=== PATIENT | male | born 1955 | race Hispanic/Latino ===

== ENCOUNTER 2021-04-26 15:40 | Emergency (ER) | payer BC ==
[~2021-04-26] VITALS: Ht 185.4 cm; Wt 95.3 kg
[~2021-04-26 15:40] MED LIST: ALLO300T2 PO; MOME13HF2 IH; NAPR-1141 PO; PHEN-776 PO; TAMS0.4C32 PO; TRAM50TA4 PO
[2021-04-26 17:22] LABS: APPEARANCE,URINE Clear (CLEAR); BILIRUBIN,URINE Negative (NEGATIVE); COLOR,URINE Yellow (YELLOW); GLUCOSE, URINE (UA) Negative (NEGATIVE); KETONES,URINE Negative (NEGATIVE); LEUKOCYTE ESTERASE ,URINE Negative (NEGATIVE); NITRATE,URINE Negative (NEGATIVE); OCCULT BLOOD,URINE Negative (NEGATIVE); PROTEIN,URINE Negative (NEGATIVE)
[2021-04-26] MEDS ORDERED: KETOROLAC 30MG VIAL (30MG/ML) ONE (17:28)
[2021-04-26] MEDS ORDERED: HYDROCODONE/ACETAMINOPHEN 5/325 MG TAB ONE (17:28)
[2021-04-26] MEDS ORDERED: KETOROLAC 30MG VIAL (30MG/ML) IM SCH (17:30)
[2021-04-26] MEDS ORDERED: HYDROCODONE/ACETAMINOPHEN 5/325 MG TAB PO SCH (17:30)
[2021-04-26 18:26] VITALS: BP 138/91
[2021-04-26] MEDS ORDERED: IBUP-2070 PO (18:56)
[2021-04-26] MEDS ORDERED: CYCL5TAB PO (18:56)
[2021-04-26] MEDS ORDERED: ACET1TAB25 PO (18:56)
[2021-04-26] MEDS ORDERED: AMOX-429 PO (18:56)
== END 2021-04-26 19:13 | disposition home or self-care (01) ==
LOC: EDH 15:40
DX: K57.32 Diverticulitis of large intestine without perforation or abscess without bleeding (principal); M54.50 Low back pain, unspecified; Z20.822 Contact with and (suspected) exposure to COVID-19; Z79.899 Other long term (current) drug therapy
CPT/HCPCS: 74176; 81003; 87088; 87635; 87880; 96372; 99284; C9803; J1885